=== PATIENT | male | born 1960 | race Caucasian/White ===

== ENCOUNTER → 2021-11-28 16:24 | Outpatient (CLI) | payer OTHER, SELFPAY ==
--- NOTE | ~2021-11-28 | XR_ITS ---
EXAMINATION: XR foot LT min 3V DATE: 11/28/2021 16:47 INDICATION: Left foot injury and pain. TECHNIQUE: 4 views of left foot were obtained. COMPARISON: None. FINDINGS: There is a spiral fracture of distal diaphysis of fifth metatarsal in near-anatomic alignme nt. Joint spaces are normal. IMPRESSION: 1. Nondisplaced spiral fracture of distal diaphysis of fifth metatarsal. Reviewed, dictated and finalized at location A.
== END ==
PROVIDERS: PCP Family Medicine; Visit Provider Nurse Practitioner Family
DX: S92.355A Nondisplaced fracture of fifth metatarsal bone, left foot, initial encounter for closed fracture (principal)
CPT/HCPCS: 73630